=== PATIENT | female | born 1960 | race African-American/Black ===

== ENCOUNTER 2017-11-14 08:36 | Day surgery (SDC) | payer MEDICARE, MEDICAID ==
[~2017-11-14] VITALS: Ht 163.8 cm; Wt 115.2 kg
[2017-11-14] MEDS ORDERED: LIDOCAINE HCL 1% 10 MG/ML 10ML VIAL ONE (10:05)
[2017-11-14] MEDS ORDERED: NITR0.4T49 SL (10:13)
[2017-11-14] MEDS ORDERED: CLOP75TA16 PO (10:13)
[2017-11-14] MEDS ORDERED: DICL75TA5 PO (10:13)
[2017-11-14] MEDS ORDERED: AMLO5TAB88 PO (10:13)
[2017-11-14] MEDS ORDERED: METO-396 PO (10:13)
[2017-11-14] MEDS ORDERED: SIMV20TA6 PO (10:13)
[2017-11-14] MEDS ORDERED: OMEP40CA34 PO (10:13)
[2017-11-14] MEDS ORDERED: SERT50TA12 PO (10:13)
[2017-11-14] MEDS ORDERED: ASPI-1159 PO (10:13)
[2017-11-14] MEDS ORDERED: IOHEXOL-300 100 ML BOTTLE ONE (10:32)
[2017-11-14] MEDS ORDERED: FENTANYL CITRATE/PF 50MCG/ML 2ML VIAL ONE (10:38)
[2017-11-14] MEDS ORDERED: MIDAZOLAM HCL 2 MG/2 ML VIAL ONE (10:38)
[2017-11-14] MEDS ORDERED: ONDANSETRON HCL 4MG/2ML INJ IV PRN (11:15)
[2017-11-14] MEDS ORDERED: HEPARIN SODIUM 1,000 UNIT/1ML VIAL IV ONE (14:15)
[2017-11-14] MEDS ORDERED: NICARDIPINE 100MCG/ML 10ML VIAL (CATH LAB) IV ONE (14:15)
[2017-11-14] MEDS ORDERED: NITROGLYCERIN 50MCG/ML 10ML VIAL (CATH LAB) IV ONE (14:15)
[2017-11-14] MEDS ORDERED: POTA20TA30 PO (23:57)
[2017-11-14] MEDS ORDERED: FURO20TA4 PO (23:57)
[2017-11-14] MEDS ORDERED: CARV3.1242 PO (23:58)
== END 2017-11-14 14:05 | disposition home or self-care (01) ==
LOC: CCL 08:36
PROVIDERS: ATTEND Specialist
DX: I25.10 Atherosclerotic heart disease of native coronary artery without angina pectoris (principal); I25.2 Old myocardial infarction; E78.5 Hyperlipidemia, unspecified; Z88.8 Allergy status to other drugs, medicaments and biological substances; I10 Essential (primary) hypertension; Z79.82 Long term (current) use of aspirin; Z79.899 Other long term (current) drug therapy; Z88.6 Allergy status to analgesic agent; Z83.3 Family history of diabetes mellitus; Z82.49 Family history of ischemic heart disease and other diseases of the circulatory system
CPT/HCPCS: 93458; 99152; C1769; C1893; J1644; J2250; J3010; J3490; Q9967

== ENCOUNTER 2018-07-22 14:44 | Emergency (ER) | payer MEDICARE, MEDICAID ==
[~2018-07-22] VITALS: Ht 162.6 cm; Wt 113.0 kg
[~2018-07-22 14:44] MED LIST: AMLO5TAB88 PO; ASPI-1159 PO; CARV3.1242 PO; CLOP75TA16 PO; FURO20TA4 PO; HYDR-4001 MT; NITR0.4T49 SL; OMEP40CA34 PO; POTA20TA30 PO; SACU1TAB7 MT; SERT50TA12 PO; SIMV20TA6 PO
[2018-07-22 15:01] VITALS: BP 128/73
== END 2018-07-22 17:46 | disposition left against medical advice (07) ==
LOC: ER 14:44
DX: Z53.21 Procedure and treatment not carried out due to patient leaving prior to being seen by health care provider (principal)

== ENCOUNTER 2018-12-02 13:32 | Inpatient (IN) | payer MEDICARE, MEDICAID ==
[~2018-12-02] VITALS: Ht 162.6 cm; Wt 113.9 kg
[~2018-12-02 13:32] MED LIST changes: -ASPI-1159 PO; +ASPI-1393 PO; -CLOP75TA16 PO; +CLOP75TA4 PO
[2018-12-02] MEDS ORDERED: ACETAMINOPHEN 500MG TABLET PO ONE (14:15)
[2018-12-02] MEDS ORDERED: ASPIRIN 81MG TABLET PO ONE (14:15)
[2018-12-02 14:53] LABS: PROTHROMBIN TIME 9.8 sec (9.6-11.0)
[2018-12-02 14:54] LABS: CHLORIDE 107 mEq/L (98-107)
[2018-12-02 14:57] LABS: BASOPHILS % 0.5 % (0.0-2.0); EOSINOPHILS % 1.8 % (0.0-5.0); HEMOGLOBIN. 11.6 g/dL (12.0-16.0); LYMPHOCYTES % 39.8 % (20.0-50.0); MEAN CORPUSCULAR HEMOGLOBIN 26.7 pg (28.0-32.0); MEAN CORPUSCULAR VOLUME 82.5 fL (81.0-99.0); MEAN PLATELET VOLUME 10.3 fl (7.4-10.4); MONOCYTES % 4.2 % (2.0-8.0); NEUTROPHILS % 53.7 % (40.0-76.0); PLATELET 216 x1000/uL (130-400); RED BLOOD CELL COUNT 4.37 mill/uL (4.2-5.4); RED CELL DISTRIBUTION WIDTH 17.6 % (11.6-14.6)
[2018-12-02] MEDS: NITROGLYCERIN 0.4MG TABLET SL SL PRN ×2 (15:35→18:50)
[2018-12-02] MEDS ORDERED: MORPHINE SULFATE 4 MG/ML CPJ (NOT FOR IM USE) IV ONE (16:00)
[2018-12-02] MEDS ORDERED: CLONIDINE 0.1MG TABLET PO PRN (18:45)
[2018-12-02] MEDS ORDERED: ONDANSETRON HCL 4MG/2ML INJ IV PRN (18:45)
[2018-12-02] MEDS ORDERED: DOCUSATE SODIUM 100MG CAPSULE PO PRN (18:45)
[2018-12-02] MEDS ORDERED: GUAIFENESIN 200MG/10ML SUGAR FREE UDC PO PRN (18:45)
[2018-12-02] MEDS ORDERED: LORAZEPAM 0.5MG TABLET PO PRN (18:45)
[2018-12-02] MEDS ORDERED: IPRATROPIUM/ALBUTEROL 0.5-3(2.5)MG/3ML NEB NEB PRN (18:45)
[2018-12-02] MEDS ORDERED: ENOXAPARIN 30MG/0.3ML SYR SUBCUT SCH (20:30)
[2018-12-02 22:05] VITALS: BP 120/60
[2018-12-02 22:30] VITALS: BP 120/60
[2018-12-03] VITALS: BP 111/58
[2018-12-03 00:11] LABS: CREATINE KINASE 55 IU/L (26-192)
[2018-12-03 00:12] LABS: CREATINE KINASE MB FRACTION < 1.0 ng/mL (0.5-3.6)
[2018-12-03] MEDS: MORPHINE SULFATE 2 MG/ML CPJ (NOT FOR IM USE) IV PRN ×2 (00:31→08:28)
[2018-12-03] MEDS ORDERED: ACET650S22 PO (01:20)
[2018-12-03] MEDS ORDERED: ALBU90AE INH (01:22)
[2018-12-03] MEDS ORDERED: BUDE6HFA INH (01:24)
[2018-12-03 04:00] VITALS: BP 148/91
[2018-12-03 07:47] LABS: BASOPHILS % 0.6 % (0.0-2.0); EOSINOPHILS % 2.2 % (0.0-5.0); HEMATOCRIT. 35.2 % (36.0-48.0); HEMOGLOBIN. 11.3 g/dL (12.0-16.0); LYMPHOCYTES % 38.9 % (20.0-50.0); MEAN CORPUSCULAR HEMOGLOBIN 26.3 pg (28.0-32.0); MEAN CORPUSCULAR VOLUME 81.5 fL (81.0-99.0); MEAN PLATELET VOLUME 10.1 fl (7.4-10.4); MONOCYTES % 4.9 % (2.0-8.0); NEUTROPHILS % 53.4 % (40.0-76.0); PLATELET 199 x1000/uL (130-400); RED BLOOD CELL COUNT 4.32 mill/uL (4.2-5.4); RED CELL DISTRIBUTION WIDTH 17.6 % (11.6-14.6)
[2018-12-03 07:58] LABS: CHLORIDE 108 mEq/L (98-107)
[2018-12-03 08:00] VITALS: BP 120/79
[2018-12-03 08:06] LABS: LDL CHOLESTEROL 103 mg/dL (5-100)
[2018-12-03 08:07] LABS: CREATINE KINASE 78 IU/L (26-192); HDL CHOLESTEROL 55 mg/dL (40-59)
[2018-12-03 08:11] LABS: CREATINE KINASE MB FRACTION < 1.0 ng/mL (0.5-3.6)
[2018-12-03] MEDS: ASPIRIN 81MG EC TABLET PO SCH (08:26)
[2018-12-03] MEDS: AMLODIPINE 10MG TABLET PO SCH (08:27)
[2018-12-03] MEDS ORDERED: ENOXAPARIN 30MG/0.3ML SYR SUBCUT SCH (09:00)
[2018-12-03] MEDS ORDERED: AMLODIPINE 5MG TABLET PO SCH (10:15)
[2018-12-03] MEDS: CLOPIDOGREL 75MG TABLET PO SCH (10:21)
[2018-12-03] MEDS: FUROSEMIDE 20MG TABLET PO SCH (10:21)
[2018-12-03] MEDS: SERTRALINE HCL 50MG TABLET PO SCH (10:21)
[2018-12-03 12:00] VITALS: BP 100/45
[2018-12-03] MEDS: HYDROCODONE/ACETAMINOPHEN 5/325MG TABLET PO PRN ×2 (13:48→20:35)
[2018-12-03 16:00] VITALS: BP 103/62
[2018-12-03] MEDS: SACUBITRIL/VALSARTAN 49MG/51MG TABLET PO SCH (16:30)
[2018-12-03] MEDS: NITROGLYCERIN OINT 1GM/INCH UDPKT TD SCH ×2 (16:33→22:19)
[2018-12-03 20:00] VITALS: BP 101/62
[2018-12-03] MEDS: ATORVASTATIN CALCIUM 10MG TABLET PO SCH (20:34)
[2018-12-03] MEDS: MAGNESIUM/ALUMINUM HYDROXIDE/SIMETHICONE 30ML UDC PO PRN (21:55)
[2018-12-03] MEDS: ACETAMINOPHEN 325MG TABLET PO PRN (22:19)
[2018-12-04] VITALS: BP 101/56
[2018-12-04 04:00] VITALS: BP 103/59
[2018-12-04] MEDS: NITROGLYCERIN OINT 1GM/INCH UDPKT TD SCH ×4 (06:20→22:31)
[2018-12-04 07:48] LABS: BASOPHILS % 0.6 % (0.0-2.0); EOSINOPHILS % 2.7 % (0.0-5.0); HEMATOCRIT. 35.3 % (36.0-48.0); HEMOGLOBIN. 11.3 g/dL (12.0-16.0); LYMPHOCYTES % 33.8 % (20.0-50.0); MEAN CORPUSCULAR HEMOGLOBIN 26.3 pg (28.0-32.0); MEAN CORPUSCULAR VOLUME 82.1 fL (81.0-99.0); MONOCYTES % 4.7 % (2.0-8.0); NEUTROPHILS % 58.2 % (40.0-76.0); PLATELET 193 x1000/uL (130-400); RED BLOOD CELL COUNT 4.31 mill/uL (4.2-5.4); RED CELL DISTRIBUTION WIDTH 17.4 % (11.6-14.6)
[2018-12-04 08:00] VITALS: BP 109/63
[2018-12-04] MEDS ORDERED: SODIUM CHLORIDE 0.45% 1,000 ML IV SCH (08:00)
[2018-12-04 08:49] LABS: CHLORIDE 106 mEq/L (98-107)
[2018-12-04] MEDS: SACUBITRIL/VALSARTAN 49MG/51MG TABLET PO SCH ×2 (09:00→17:09)
[2018-12-04] MEDS ORDERED: IODIXANOL 320MG/ML 100 ML BOTTLE IV ONE (10:34)
[2018-12-04] MEDS ORDERED: LIDOCAINE HCL 1% 20ML VIAL (Pyxis) INJ ONE (10:34)
[2018-12-04] MEDS ORDERED: MIDAZOLAM HCL 2 MG/2 ML VIAL ONE (11:06)
[2018-12-04] MEDS ORDERED: FENTANYL CITRATE/PF 50MCG/ML 2ML VIAL ONE (11:06)
[2018-12-04] MEDS ORDERED: ONDANSETRON HCL 4MG/2ML INJ IV PRN (11:45)
[2018-12-04] MEDS ORDERED: ACETAMINOPHEN 325MG TABLET PO PRN (11:45)
[2018-12-04] MEDS ORDERED: ATROPINE SULFATE 1MG/10ML SYR IV PRN (11:45)
[2018-12-04] MEDS: HYDROCODONE/ACETAMINOPHEN 5/325MG TABLET PO PRN ×3 (13:20→23:21)
[2018-12-04] MEDS ORDERED: HYDROCODONE/ACETAMINOPHEN 5/325MG TABLET ONE (13:20)
[2018-12-04] MEDS: AMLODIPINE 10MG TABLET PO SCH (15:50)
[2018-12-04] MEDS: ASPIRIN 81MG EC TABLET PO SCH (15:50)
[2018-12-04] MEDS: CLOPIDOGREL 75MG TABLET PO SCH (15:51)
[2018-12-04] MEDS: SERTRALINE HCL 50MG TABLET PO SCH (15:51)
[2018-12-04] MEDS: FUROSEMIDE 20MG TABLET PO SCH (15:51)
[2018-12-04 16:00] VITALS: BP 138/75
[2018-12-04] MEDS: MAGNESIUM/ALUMINUM HYDROXIDE/SIMETHICONE 30ML UDC PO PRN (17:09)
[2018-12-04 20:00] VITALS: BP 123/63
[2018-12-04] MEDS: ATORVASTATIN CALCIUM 10MG TABLET PO SCH ×2 (21:00→22:31)
[2018-12-04] MEDS ORDERED: MEDICATION NOT ON FORMULARY EA (Omeprazole 40 MG) PO SCH (22:15)
[2018-12-04] MEDS: FAMOTIDINE 20MG TABLET PO SCH (22:31)
[2018-12-05] VITALS: BP 100/50
[2018-12-05 04:00] VITALS: BP 104/68
[2018-12-05] MEDS: NITROGLYCERIN OINT 1GM/INCH UDPKT TD SCH (06:00)
[2018-12-05 08:00] VITALS: BP 112/74
[2018-12-05] MEDS: SACUBITRIL/VALSARTAN 49MG/51MG TABLET PO SCH (09:00)
[2018-12-05] MEDS: ASPIRIN 81MG EC TABLET PO SCH (09:32)
[2018-12-05] MEDS: FAMOTIDINE 20MG TABLET PO SCH (09:33)
[2018-12-05] MEDS: SERTRALINE HCL 50MG TABLET PO SCH (09:33)
[2018-12-05] MEDS: FUROSEMIDE 20MG TABLET PO SCH (09:33)
[2018-12-05] MEDS: CLOPIDOGREL 75MG TABLET PO SCH (09:33)
[2018-12-05] MEDS: AMLODIPINE 10MG TABLET PO SCH (09:35)
[2018-12-05] MEDS: ACETAMINOPHEN 325MG TABLET PO PRN (09:36)
[2018-12-05 12:00] VITALS: BP 117/79
[2018-12-05 15:26] VITALS: BP 112/74
[2018-12-05 16:31] VITALS: BP 111/76
== END 2018-12-05 16:00 | disposition home or self-care (01) | DRG 287 ==
LOC: ER 13:32 → 8WST 16:02 → EDBEDREQ 16:08 → SUPCPDRO 18:32 → ENRESERV 21:40 → UNDODISIN 12-04 12:08
PROVIDERS: ADMIT Hospitalist; ATTEND Hospitalist
PROC: 4A023N7 Measurement of Cardiac Sampling and Pressure, Left Heart, Percutaneous Approach (ICD-10-PCS; principal; 2018-12-04)
PROC: B2111ZZ Fluoroscopy of Multiple Coronary Arteries using Low Osmolar Contrast (ICD-10-PCS; 2018-12-04)
PROC: B2151ZZ Fluoroscopy of Left Heart using Low Osmolar Contrast (ICD-10-PCS; 2018-12-04)
DX: I25.110 Atherosclerotic heart disease of native coronary artery with unstable angina pectoris (principal); Z68.41 Body mass index [BMI] 40.0-44.9, adult; I11.9 Hypertensive heart disease without heart failure; E66.09 Other obesity due to excess calories; E78.00 Pure hypercholesterolemia, unspecified; E78.5 Hyperlipidemia, unspecified; I25.2 Old myocardial infarction; Z95.5 Presence of coronary angioplasty implant and graft; Z79.82 Long term (current) use of aspirin; Z79.899 Other long term (current) drug therapy; Z87.891 Personal history of nicotine dependence; Z88.6 Allergy status to analgesic agent; Z88.8 Allergy status to other drugs, medicaments and biological substances; Z79.02 Long term (current) use of antithrombotics/antiplatelets
CPT/HCPCS: 36415; 71045; 80048; 80061; 82550; 82553; 83880; 84484; 93005; 93306; 93458; 93970; 99285; C1769; C1887; C1893; J1644; J1650; J2250; J2270; J3010; J3490; J7620; Q9967

== ENCOUNTER 2019-01-11 20:59 | Emergency (ER) | payer MEDICARE, MEDICAID ==
[~2019-01-11] VITALS: Ht 162.6 cm; Wt 116.0 kg
[~2019-01-11 20:59] MED LIST changes: +ACET650S22 PO; +ALBU90AE INH; -ASPI-1393 PO; +BUDE6HFA INH; -CARV3.1242 PO; -HYDR-4001 MT; -POTA20TA30 PO; -SACU1TAB7 MT
[2019-01-11] MEDS ORDERED: HYDROCODONE/ACETAMINOPHEN 5/325MG TABLET PO STA (22:07)
[2019-01-11 22:33] LABS: BASOPHILS % 0.9 % (0.0-2.0); HEMATOCRIT. 33.3 % (36.0-48.0); HEMOGLOBIN. 10.7 g/dL (12.0-16.0); MEAN CORPUSCULAR HEMOGLOBIN 26.5 pg (28.0-32.0); MEAN CORPUSCULAR VOLUME 82.3 fL (81.0-99.0); MEAN PLATELET VOLUME 9.7 fl (7.4-10.4); MONOCYTES % 5.2 % (2.0-8.0); NEUTROPHILS % 44.9 % (40.0-76.0); PLATELET 193 x1000/uL (130-400); RED BLOOD CELL COUNT 4.05 mill/uL (4.2-5.4)
[2019-01-11 22:38] LABS: CHLORIDE 109 mEq/L (98-107)
[2019-01-12 00:13] LABS: CLARITY URINE CLEAR (CLEAR); COLOR URINE YELLOW (YELLOW); KETONES URINE NEGATIVE (NEGATIVE); LEUKOCYTE ESTERASE URINE NEGATIVE (NEGATIVE); NITRITE URINE NEGATIVE (NEGATIVE); OCCULT BLOOD URINE NEGATIVE (NEGATIVE); PH URINE 5.5 (4.5-8.0); PROTEIN URINE NEGATIVE (NEGATIVE); SPECIFIC GRAVITY URINE 1.021 (1.005-1.030); UROBILINOGEN URINE 0.2 E.U./dL (0.2-1.0)
[2019-01-12 00:46] VITALS: BP 121/76
== END 2019-01-12 00:48 | disposition home or self-care (01) ==
LOC: ER 20:59 → CANBEDREQ 01-12 01:19
DX: F43.9 Reaction to severe stress, unspecified (principal); D64.9 Anemia, unspecified; M79.601 Pain in right arm; R51 Headache; R11.2 Nausea with vomiting, unspecified; J44.9 Chronic obstructive pulmonary disease, unspecified; E78.00 Pure hypercholesterolemia, unspecified; I10 Essential (primary) hypertension; I25.2 Old myocardial infarction; I25.10 Atherosclerotic heart disease of native coronary artery without angina pectoris; Z79.899 Other long term (current) drug therapy; Z88.6 Allergy status to analgesic agent
CPT/HCPCS: 36415; 71045; 81003; 83880; 84484; 93005; 99284

== ENCOUNTER 2019-05-12 16:36 | Emergency (ER) | payer MEDICARE, MEDICAID ==
[~2019-05-12] VITALS: Ht 157.5 cm; Wt 114.3 kg
[~2019-05-12 16:36] MED LIST changes: +OMEP40CA12 PO; -OMEP40CA34 PO; +SIMV-43 PO; -SIMV20TA6 PO
[2019-05-12 18:31] VITALS: BP 143/82
[2019-05-12] MEDS ORDERED: ASPIRIN 81MG TABLET PO ONE (19:00)
[2019-05-12 19:39] LABS: BASOPHILS % 0.9 % (0.0-2.0); EOSINOPHILS % 1.6 % (0.0-5.0); HEMATOCRIT. 38.4 % (36.0-48.0); HEMOGLOBIN. 12.3 g/dL (12.0-16.0); LYMPHOCYTES % 42.8 % (20.0-50.0); MEAN PLATELET VOLUME 9.4 fl (7.4-10.4); MONOCYTES % 4.6 % (2.0-8.0); NEUTROPHILS % 50.1 % (40.0-76.0); PLATELET 236 x1000/uL (130-400); RED BLOOD CELL COUNT 4.57 mill/uL (4.2-5.4); RED CELL DISTRIBUTION WIDTH 17.4 % (11.6-14.6)
[2019-05-12 19:47] LABS: CHLORIDE 108 mEq/L (98-107)
[2019-05-12 19:54] LABS: ETHANOL BLOOD < 10 mg/dL
[2019-05-12 19:54] LABS: *AMPHETAMINES SCREEN URINE NEGATIVE (NEGATIVE); *BARBITURATES SCREEN URINE NEGATIVE (NEGATIVE); *BENZODIAZEPINES SCREEN URINE NEGATIVE (NEGATIVE); *COCAINE SCREEN URINE NEGATIVE (NEGATIVE); CANNABINOID URINE SCREEN NEGATIVE (NEGATIVE); METHADONE URINE SCREEN NEGATIVE (NEGATIVE); OPIATES URINE SCREEN PRESUMTIVE POSITIVE (NEGATIVE); PHENCYCLIDINE URINE SCREEN NEGATIVE (NEGATIVE)
[2019-05-12] MEDS ORDERED: IBUPROFEN 600MG TABLET PO ONE (20:30)
[2019-05-12] MEDS ORDERED: ACETAMINOPHEN 325MG TABLET PO ONE (20:45)
== END 2019-05-13 04:20 | disposition home or self-care (01) ==
LOC: ER 16:36
DX: R07.89 Other chest pain (principal); J44.9 Chronic obstructive pulmonary disease, unspecified; E78.00 Pure hypercholesterolemia, unspecified; I10 Essential (primary) hypertension; I25.2 Old myocardial infarction; I25.10 Atherosclerotic heart disease of native coronary artery without angina pectoris; Z79.899 Other long term (current) drug therapy; Z88.6 Allergy status to analgesic agent
CPT/HCPCS: 36415; 71045; 80053; 80305; 80320; 83880; 84484; 85025; 93005; 99285; G0480

== ENCOUNTER 2019-10-05 01:26 | Emergency (ER) | payer MEDICARE, MEDICAID ==
[~2019-10-05] VITALS: Ht 170.2 cm; Wt 100.0 kg
[2019-10-05] MEDS ORDERED: METHYLPREDNISOLONE SOD SUCC 125 MG/2 ML VIAL IV ONE (02:15)
[2019-10-05 02:23] LABS: BASOPHILS % 1.2 % (0.0-2.0); EOSINOPHILS % 1.5 % (0.0-5.0); HEMATOCRIT. 34.2 % (36.0-48.0); HEMOGLOBIN. 11.1 g/dL (12.0-16.0); MEAN CORPUSCULAR HEMOGLOBIN 27.3 pg (28.0-32.0); MEAN PLATELET VOLUME 9.7 fl (7.4-10.4); MONOCYTES % 5.7 % (2.0-8.0); NEUTROPHILS % 53.6 % (40.0-76.0); PLATELET 206 x1000/uL (130-400); RED BLOOD CELL COUNT 4.07 mill/uL (4.2-5.4); RED CELL DISTRIBUTION WIDTH 17.1 % (11.6-14.6)
[2019-10-05 02:27] LABS: CHLORIDE 108 mEq/L (98-107)
[2019-10-05] MEDS ORDERED: PREDNISONE 20MG TABLET PO ONE (03:00)
[2019-10-05] MEDS ORDERED: ACETAMINOPHEN 325MG TABLET PO ONE (03:00)
[2019-10-05 03:06] VITALS: BP 158/76
== END 2019-10-05 03:06 | disposition home or self-care (01) ==
LOC: ER 01:26
DX: T78.40XA Allergy, unspecified, initial encounter (principal); L53.9 Erythematous condition, unspecified; I11.9 Hypertensive heart disease without heart failure; Z98.890 Other specified postprocedural states; Z79.899 Other long term (current) drug therapy; Z88.6 Allergy status to analgesic agent; Z88.8 Allergy status to other drugs, medicaments and biological substances; X58.XXXA Exposure to other specified factors, initial encounter
CPT/HCPCS: 36415; 80053; 85025; 93005; 99284; J7512

== ENCOUNTER 2021-07-22 12:07 | Emergency (ER) | payer MEDICARE, MEDICAID ==
[~2021-07-22] VITALS: Ht 162.6 cm; Wt 119.0 kg
[~2021-07-22 12:07] MED LIST changes: +CLOP-31 PO; -CLOP75TA4 PO; -OMEP40CA12 PO; +OMEP40CA20 PO; +SERT-422 PO; -SERT50TA12 PO
[2021-07-22 12:15] VITALS: BP 156/98
== END 2021-07-22 16:08 | disposition left against medical advice (07) ==
LOC: ER 12:07
DX: Z53.21 Procedure and treatment not carried out due to patient leaving prior to being seen by health care provider (principal)